=== PATIENT | male | born 1975 | race African-American/Black ===

== ENCOUNTER 2019-05-03 11:12 | Emergency (ER) | payer OTHER ==
[~2019-05-03] VITALS: Ht 172.7 cm; Wt 129.7 kg
[~2019-05-03 11:12] MED LIST: IBUPROFEN600 MG ORAL; NKM; TRAMADOL HCL50 MG ORAL
--- NOTE | 2019-05-03 11:21 | NUR ---
ED Nurse Note: Patient walked in to ER with c/o of swelling of penis foreskin. Patient stated that it started yesterday. Patient does not know the reason why his foreskin is swollen. Patient denies pain on the area. Foreskin intact with no bleeding or discharges noted.
[2019-05-03 11:23] VITALS: BP 136/86
[2019-05-03] MEDS ORDERED: MEDROL DOSEPAK4 MG ORAL (11:57)
--- NOTE | 2019-05-03 12:05 | NUR ---
ER DISCHARGE NOTE: Patient is cleared to be discharged per ERMD, pt is aox4, on room air, with stable vital signs. pt was given dc and prescription instructions, pt was able to verbalize understanding, pt id band removed. pt is able to ambulate with steady gait. pt took all belongings.
[2019-05-03 12:14] VITALS: BP 128/86
--- NOTE | 2019-05-03 13:59 | Emergency Room Report ---
History of Present Illness General Chief Complaint: Male Urogenital Problems Source: Patient Present Illness HPI Patient presents with complaints of swelling and edema to the lower aspect of the foreskin he noticed this earlier this morning Denies any pain Denies any trauma denies any abdominal pain Patient denies any abnormal sexual contact reports that he is Denies any dysuria denies any testicular pain Denies any fevers or chills This is the first occurrence Allergies: Coded Allergies: No Known Allergies (Unverified , 04/18/19) Patient History Past Medical History: see triage record Reviewed Nursing Documentation: PMH: Agreed; PSxH: Agreed Nursing Documentation-PMH Past Medical History: No Stated History Review of Systems All Other Systems: negative except mentioned in HPI Physical Exam Vital Signs Date Time Temp Pulse Resp B/P (MAP) Pulse Ox O2 Delivery O2 Flow Rate FiO2 05/03/19 11:14 97.5 104 18 163/101 (121) 96 Room Air Sp02 EP Interpretation: reviewed, normal General Appearance: well appearing, no apparent distress Head: normocephalic, atraumatic Eyes: bilateral eye PERRL, bilateral eye EOMI ENT: hearing grossly normal, normal pharynx Neck: supple Respiratory: lungs clear Gastrointestinal: non tender, soft Genitourinary: other - Patient is circumcised the lower aspect of the foreskin does show edematous, findings however the meatus is, still visible and open area appears to localize only to the lower aspect approximately from 4:00 to 7: 00 region on the distal foreskin Musculoskeletal: normal inspection Neurologic: alert, oriented x3, responsive Psychiatric: normal inspection Skin: other - As above Lymphatic: no adenopathy Medical Decision Making Diagnostic Impression: Primary Impression: balanitis ER Course Given the patient's history and presentation examination findings are consistent with balanitis Patient is provided hygiene control also low steroid for initial edema And is stable for close outpatient follow-up Last Vital Signs Date Time Temp Pulse Resp B/P (MAP) Pulse Ox O2 Delivery O2 Flow Rate FiO2 05/03/19 12:14 97.8 88 19 128/86 97 Room Air Status: unchanged Disposition: HOME, SELF-CARE Condition: Stable Scripts Methylprednisolone (Methylprednisolone*) 4MG Dspk 4 MG ORAL DIRECTED for 6 Days, #21 EA 0 Refills Day 1: Two tablets before breakfast, one after lunch, one after dinner, and two at bedtime. If started late in the day, take all six tablets at once or divide into two or three doses, unless otherwise directed by prescriber. Day 2: One tablet before breakfast, one after lunch, one after dinner, and two at bedtime Day 3: One tablet before breakfast, one after lunch, one after dinner, and one at bedtime Day 4: One tablet before breakfast, one after lunch, and one at bedtime Day 5: One tablet before breakfast and one at bedtime Day 6: One tablet before breakfast Prov: Rowan Wilson DO 05/03/19 Referrals: ROLANDO DEE [facility] (PCP) [facility]. [facility] Patient Instructions: [place] Additional Instructions: Patient is provided with the discharge instructions notified to follow up with primary doctor in the next 2-3 days otherwise return to the er with any worsening symptoms. Please note that this report is being documented using DRAGON technology. This can lead to erroneous entry secondary to incorrect interpretation by the dictating instrument. Rowan Wilson DO May 03, 2019 13:59
== END 2019-05-03 12:05 | disposition home or self-care (01) ==
LOC: EMR 11:35
DX: N48.1 Balanitis (principal)
CPT/HCPCS: 99282

== ENCOUNTER 2019-06-27 09:38 | Emergency (ER) | payer OTHER ==
[~2019-06-27] VITALS: Ht 172.7 cm; Wt 129.7 kg
[~2019-06-27 09:38] MED LIST changes: +MEDROL DOSEPAK4 MG ORAL
[2019-06-27 09:42] VITALS: BP 142/94
--- NOTE | 2019-06-27 09:59 | Emergency Room Report ---
History of Present Illness General Chief Complaint: Lower Back Pain or Injury Source: Patient Present Illness HPI Disclaimer: Please note that this report is being documented using DRAGON technology. This can lead to erroneous entry secondary to incorrect interpretation by the dictating instrument. HPI: 44-year-old otherwise healthy male presents for evaluation of back pain after a fall. The patient was on a ladder approximately 8 feet off the ground falling backwards while hanging [employer] tree decorations. He fell onto his buttocks and lower back. There is no head injury or loss of consciousness. He was able to ambulate after the injury and complained of midline lower and mid back pain. He took 1 of his [id number]-iq-[id number]'s Pandora's prior to sleep which improved his pain. When he awoke he complained of severely worsening pain in the midline and pain radiating down the posterior aspect of the right side going to about the mid thigh. Denies any urinary retention or fecal incontinence. He is able to ambulate though it is painful. Pain is relieved by laying flat and exacerbated by sitting up and walking. He denies any paresthesias or lower extremely weakness. No other injury sustained. He is complaining of some heartburn after taking his jahppn-rg-kne's Pandora last night. PMH: Denies PSH: Left ankle ORIF as a child Allergies: Denies Social Hx: Denies drug or alcohol use Allergies: Coded Allergies: No Known Allergies (Unverified , 04/18/19) Nursing Documentation-PMH Past Medical History: No Stated History Review of Systems All Other Systems: negative except mentioned in HPI Physical Exam Vital Signs Date Time Temp Pulse Resp B/P (MAP) Pulse Ox O2 Delivery O2 Flow Rate FiO2 06/27/19 09:42 98.1 99 20 142/94 (110) 98 Room Air General: Awake and alert, appears moderately uncomfortable HEENT: NC/AT. EOMI. Resp: Normal work of breathing Skin: Intact. No abrasions, laceration or rash over the exposed skin MSK: Normal tone and bulk. Moving all extremities. No obvious deformity. Ambulating under his own power though difficult secondary to pain. Hunched over while walking. Neuro: Awake and alert. Mentating appropriately. Sensation is intact to light touch over the dermatomes of the lower extremities bilaterally. No saddle anesthesia. Spine: No tenderness, step-offs or deformities in the cervical or upper thoracic spine. In the lower thoracic and over the lumbar spine there is midline tenderness to palpation without step-off or deformity. Moderate paraspinal tenderness as well. Medical Decision Making Diagnostic Impression: Primary Impression: Lumbar back pain Additional Impression: GERD (gastroesophageal reflux disease) ER Course 44-year-old male presents for evaluation of back pain after a fall. Differential includes was not limited to muscle spasm, contusion, vertebral body fracture, sciatica, herniated disc. No clinical signs of cauda equina syndrome. Will obtain CT scans of the thoracic and lumbar spine and treat the patient's pain with analgesia and muscle relaxers. CT/MRI/US Diagnostic Results CT/MRI/US Diagnostic Results : Impression Final Report EXAM: CT Thoracic Spine Without Intravenous Contrast COMPARISON: None FINDINGS: Bones: Normal alignment. No acute fracture or bony lesion. Disc spaces: No subluxation. Mild degenerative changes. No spinal canal stenosis or neuroforaminal stenosis. Soft tissues: Normal. Other: Nonspecific mildly prominent mediastinal lymph nodes. Small hiatal hernia. IMPRESSION: No acute traumatic abnormality. Radiologist: Celestine Dunbar M.D. Electronically Signed: 06/27/19 10:52 Reevaluation Time: 11:38 Last Vital Signs Date Time Temp Pulse Resp B/P (MAP) Pulse Ox O2 Delivery O2 Flow Rate FiO2 06/27/19 09:42 98.1 99 20 142/94 98 Room Air Reevaluation Impression No evidence of fracture dislocation on CT imaging at the thoracic or lumbosacral spine. The patient's pain is significantly improved after receiving medications. He will be discharged with additional lidocaine patches , Robaxin, NSAIDs and Tylenol 3's for breakthrough pain. Copies of his CTs have been given to him in his discharge paperwork. He is to follow-up with his PMD for further reevaluation and management. We discussed reasons to return to the emergency department with patient and his was present at bedside. They understand and agree with this treatment plan will be discharged home. He was given a walker for stability to use as needed. Disposition: HOME, SELF-CARE Condition: Improved Scripts Famotidine* (Pepcid 20mg tablet*) 20 Mg Tablet 20 MG ORAL DAILY, #30 TAB 0 Refills Prov: Esvin Vasquez MD 06/27/19 Acetaminophen With Codeine (T#3) (TYLENOL #3 TAB*) Y Tab 1 TAB ORAL Q8H PRN for For Pain, #10 TAB Prov: Esvin Vasquez MD 06/27/19 Lidocaine Patch* (Lidoderm Patch*) 1 Each Adh..patch 1 PATCH TOPIC DAILY, #7 PATCH 0 Refills Patch(es) may remain in place for up to 12 hours in any 24-hour period. Prov: Esvin Vasquez MD 06/27/19 Methocarbamol* (ROBAXIN-750*) 750 Mg Tablet 750 MG PO QID, #28 TAB 0 Refills Prov: Esvin Vasquez MD 06/27/19 Ibuprofen* (MOTRIN*) 600 Mg Tablet 600 MG ORAL Q8H PRN for For Pain, #30 TAB 0 Refills Prov: Esvin Vasquez MD 06/27/19 Esvin Vasquez MD Jun 27, 2019 09:59
[2019-06-27] MEDS ORDERED: HYDROcodone/Acetamin 7.5/325 tab ORAL ONE (10:00)
[2019-06-27] MEDS ORDERED: Ketorolac 30mg Inj IM ONE (10:00)
[2019-06-27] MEDS ORDERED: Methocarbamol 750mg tab ORAL ONE (10:00)
--- NOTE | 2019-06-27 10:53 | Diagnostic Imaging Report ---
EXAM: CT Thoracic Spine Without Intravenous Contrast CLINICAL HISTORY: INJ TECHNIQUE: Axial computed tomography images of the thoracic spine without intravenous contrast. CTDI is 42.6 mGy and DLP is 1705.1 mGy-cm. One or more of the following dose reduction techniques were used: automated exposure control, adjustment of the mA and/or kV according to patient size, use of iterative reconstruction technique. COMPARISON: None FINDINGS: Bones: Normal alignment. No acute fracture or bony lesion. Disc spaces: No subluxation. Mild degenerative changes. No spinal canal stenosis or neuroforaminal stenosis. Soft tissues: Normal. Other: Nonspecific mildly prominent mediastinal lymph nodes. Small hiatal hernia. IMPRESSION: No acute traumatic abnormality.
[2019-06-27] MEDS ORDERED: IBUPROFEN600 MG ORAL (11:31)
[2019-06-27] MEDS ORDERED: LIDODERM700 M1 TOPIC (11:31)
[2019-06-27] MEDS ORDERED: ROBAXIN-750750 MG PO (11:31)
[2019-06-27] MEDS ORDERED: ACETAMINOPHEN-1 EAC1 ORAL (11:36)
[2019-06-27] MEDS ORDERED: FAMOTIDINE20 MG ORAL (11:36)
--- NOTE | 2019-06-27 11:43 | Diagnostic Imaging Report ---
EXAM: CT Lumbar Spine Without Intravenous Contrast CLINICAL HISTORY: INJ TECHNIQUE: Axial computed tomography images of the lumbar spine without intravenous contrast. CTDI is 43.5 mGy and DLP is 1633.5 mGy-cm. One or more of the following dose reduction techniques were used: automated exposure control, adjustment of the mA and/or kV according to patient size, use of iterative reconstruction technique. COMPARISON: None FINDINGS: Bones: Normal alignment. No acute fracture or bony lesion. Disc spaces: No subluxation. Mild degenerative changes of the spine. Mild spinal canal stenosis at L3-4 and L4-5. Moderate left and mild right neural foraminal stenoses at L4-5. Moderate bilateral neural foraminal stenoses at L5-S1. Soft tissues: Normal. Other: Indeterminate small left adrenal nodule. Normal appendix. Diverticulosis. Moderate to large amount of stool in the rectosigmoid. IMPRESSION: No acute traumatic abnormality.
[2019-06-27 11:50] VITALS: BP 142/92
[2019-06-27 11:54] VITALS: BP 142/92
== END 2019-06-27 11:54 | disposition home or self-care (01) ==
LOC: EMR 10:16
DX: M54.5 Low back pain (principal); K21.9 Gastro-esophageal reflux disease without esophagitis; K44.9 Diaphragmatic hernia without obstruction or gangrene
CPT/HCPCS: 72128; 72131; 96372; J1885; Z7502; 99284